=== PATIENT | male | born 1965 | race Caucasian/White ===

== ENCOUNTER 2016-07-20 21:28 | Emergency (ER) | payer OTHER ==
[~2016-07-20] VITALS: Ht 180.3 cm; Wt 112.0 kg
[2016-07-20 22:26] LABS: HEMATOCRIT 53.3 % (38.0-50.0); MCH 29.4 PG (29.0-34.0); MCHC 33.8 G/DL (30.0-36.0); MCV 87.1 FL (86-99); MEAN PLAT.VOLUME 9.7 uM^3 (9.0-12.4); PLATELET COUNT 329 K/uL (156-360); RBC DIS.WIDTH-CV 12.4 % (11.8-14.6); RED BLOOD COUNT 6.12 M/uL (4.00-5.50); WHITE BLOOD COUNT 12.5 K/uL (4.1-10.2)
[2016-07-20 22:41] LABS: CHLORIDE 100 mEq/L (99-109); POTASSIUM 4.5 mEq/L (3.7-5.4); SODIUM 137 mEq/L (136-147)
[2016-07-20 22:43] LABS: GLUCOSE 127 mg/dL (70-99)
[2016-07-20 22:44] LABS: ANION GAP 12 MEQ/L (2-14)
[2016-07-20 22:45] LABS: TOTAL BILIRUBIN 0.5 mg/dL (0.0-1.0)
[2016-07-20 22:47] LABS: ALKALINE PHOSPHATASE 62 IU/L (3-129); GFR ESTIMATE (CALCULATED) > 59 mL/min/
[2016-07-20 22:48] LABS: UREA NITROGEN (BUN) 15 mg/dL (9-23)
[2016-07-20 22:50] LABS: LIPASE 408 U/L (1.0-51.0)
[2016-07-20 23:13] LABS: ADD MIUA? NO; BILIRUBIN NEGATIVE; BLOOD NEGATIVE; COLOR YELLOW ((YELLOW)); GLUCOSE (STRIP) NEGATIVE; KETONES NEGATIVE; LEUKOCYTES NEGATIVE; NITRITE NEGATIVE; PROTEIN (STRIP) NEGATIVE; SPECIFIC GRAVITY 1.013 (1.000-1.030); UCUL ADDED? NO; UROBILINOGEN 0.2 MG/DL (0.2-1.0)
[2016-07-20 23:47] LABS: AMYLASE 148 IU/L (1-118)
[2016-07-21] MEDS ORDERED: RANITIDINE HCL150 MG PO (00:44)
[2016-07-21] MEDS ORDERED: VOLTAREN75 MG PO (00:44)
[2016-07-21] MEDS ORDERED: ZESTRIL20 MG PO (00:45)
[2016-07-21] MEDS ORDERED: BENTYL10 MG PO (00:50)
[2016-07-21] MEDS ORDERED: PERCOCET 7.51 TABLET PO (01:55)
[2016-07-21] MEDS ORDERED: CIPRO500 MG PO (01:55)
[2016-07-21] MEDS ORDERED: ZOFRAN4 MG PO (01:56)
[2016-07-21 02:10] VITALS: BP 140/97
== END 2016-07-21 02:12 | disposition home or self-care (01) ==
LOC: RME 21:28 → EME 21:28 → RME 07-21 02:12
PROVIDERS: Physician Assistant
DX: K85.90 Acute pancreatitis without necrosis or infection, unspecified (principal); K52.9 Noninfective gastroenteritis and colitis, unspecified
CPT/HCPCS: 74177; 76705; 80053; 81003; 82150; 83690; 85027; 99281; 99285; J2270; J2405; J3010; J7030